=== PATIENT | female | born 1960 | race Caucasian/White ===

== ENCOUNTER 2024-06-28 06:19 | Day surgery (SDC) | payer MEDICARE, OTHER, SELFPAY ==
[2024-06-28] VITALS (26 sets, daily range): BP systolic 79–150; BP diastolic 47–93; PULSE 39–81; RESP 16; TEMP 36.1–36.8; O2SAT 95–100; BMI 22.5
[2024-06-28] MEDS: ACETAMINOPHEN 500 MG TABLET 1000 MG PO (07:00)
[2024-06-28] MEDS: OXYCODONE (CR) 10 MG TAB.ER.12H PO (07:00)
[2024-06-28] MEDS: SODIUM CHLORIDE 0.9 % (FLUSH) 10 ML SYRINGE IVF (07:10)
[2024-06-28] MEDS: LACTATED RINGERS 1000 ML 1,000 ML 100 ML IV (07:10)
--- NOTE | 2024-06-28 07:16 | W.PM.H&PU ---
History & Physical Update History & Physical Update H&P Reviewed and patient assessed: No changes noted
--- NOTE | 2024-06-28 07:18 | CRLHL7_ITS ---
For Patients: As a result of the Cures Act, medical imaging exams and procedure reports are released immediately into your electronic medical record. You may view this report before your referring provider. If you have questions, please contact your health care provider. Indication: Postop Technique: AP hip centered pelvis and lateral view right hip Findings/Impression: Hardware from a right total hip arthroplasty is in satisfactory position. Bone alignment is normal. No sign of acute fracture. Postop changes are within normal limits. Dictated by Mickey Covarrubias MD @ 06/28/2024 1:13:03 PM (Electronically Signed)
--- NOTE | 2024-06-28 07:30 | CRLHL7_ITS ---
For Patients: As a result of the Cures Act, medical imaging exams and procedure reports are released immediately into your electronic medical record. You may view this report before your referring provider. If you have questions, please contact your health care provider. Indication: Hip replacement surgery Technique: AP hip fluoroscopic image. Fluoroscopy time 33.2 seconds. Findings/Impression: Hardware from a right total hip arthroplasty is in satisfactory position. Dictated by Mickey Covarrubias MD @ 06/28/2024 1:13:44 PM (Electronically Signed)
[2024-06-28] MEDS: CEFAZOLIN 2 GM in 0.9 % SODIUM CHLORIDE Mini-bag 100 ML IVPB (07:32)
--- NOTE | 2024-06-28 07:33 | SUR.PREOP ---
TIME?OUT:?0714 PT/RN/MDA?VERIFICATION?OF?SURGICAL?SITE,?PROCEDURE,?AND?CONSENT OBTAINED?PRIOR?TO?INVASIVE?PROCEDURE.
[2024-06-28] MEDS: TRANEXAMIC ACID 100 MG/ML INJ 1000 MG IV (07:35)
--- NOTE | 2024-06-28 08:18 | P.NB_ITS ---
Nerve Block Nerve Block Time Seen by Provider: 07:23 Date Seen: 06/28/24 Type of block requested by surgeon for post-operative analgesia: BOLA/LFCN Side: right Time out performed: Yes Verification of patient name: Yes Verification of date of : Yes Site marking: site marked Name of person performing procedure: Barry Continuous monitoring Was continuous monitoring of O2 sat, B/P, cardiac catheterization technician, recorded every 15 minutes?: Yes Procedure Checklist: sterile prep, needles and gloves Ultrasound guided. Images saved: Yes Medications given in 5ml increments after negative aspiration: Ropivicaine %: 0.5 mL: 30 Needle gauge: 20 Precedex (mcg): 25 Patient tolerated procedure well: Yes Additional comments: Needle noted below psoas tendon needle noted adjacent to LFCN Block Charges Block Charge (with Pro Fee): Other Periph Nerve Block Use of Ultrasound Machine for Block: Yes- US Guidance/pain block
--- NOTE | 2024-06-28 08:18 | W.ANESCHARGE ---
Anesthesia Charges Start Date/Time Anesthesia Start Date: 06/28/24 Anesthesia Start Time: 07:26 Stop Date/Time Anesthesia Stop Date: 06/28/24 Anesthesia Stop Time: 09:38
--- NOTE | 2024-06-28 08:48 | PM.ORPRC ---
Procedure Note Date of procedure: 06/28/24 Procedure: PREOPERATIVE DIAGNOSIS: 1. Right hip osteoarthritis, severe, primary POSTOPERATIVE DIAGNOSIS: 1. Right hip osteoarthritis, severe, primary PROCEDURE: 1. Right total hip arthroplasty-anterior approach 2. 16827 - intraoperative fluoroscopy up to 1 hour. SURGEON: Franco Gonzalez MD. LUBRICATING ENGINEER: Chaz Whitman PA-C; LENKA Urbano - Of note, a skilled guest services assistant was critical for this case to aid in patient positioning, tissue retraction, limb manipulation/positioning, and closure. ANESTHESIA: Spinal anesthetic EBL: 200 mL IMPLANTS: DePuy J&J uncemented total hip [place] cup size 50, hole eliminator, +4 neutral liner Actis stem, high offset, size 6 +1 mm ceramic 32mm head COMPLICATIONS: None evident INDICATIONS: The patient is a pleasant 64-year-old female who has experienced severe right hip pain and difficulty bearing weight. Workup included x-rays which revealed severe osteoarthrosis in the hip. Given the deformity, the dysfunction, and the pain, as well as the failure of nonoperative management, recommendation was made for surgery. FINDINGS: Full-thickness chondral loss diffusely throughout the femoral head as well as acetabulum. Osteophytes around the perimeter of femoral head/neck junction. Moderate effusion upon entering the joint. DESCRIPTION OF PROCEDURE: Following a thorough discussion of risks, benefits, and alternatives consent was obtained and the right hip was marked. The patient was brought to the operating room and placed supine on the operating table. Induction of anesthesia was undertaken. 1 g IV Ancef and 1 g tranexamic acid was administered within 1 hr of incision preoperatively. Proper time-out was performed identifying proper patient, site, procedure. The operative extremity was prepped and draped in the appropriate sterile fashion using ChloraPrep after the patient was positioned on the [place] table with head in neutral alignment and all bony prominences well padded. C-arm fluoroscopic imaging was utilized to confirm proper pelvis rotation and position, and to get true AP films of both the contralateral left, and the affected right hip. This is for comparison. A longitudinal incision was made starting approximately 1 cm distal to the ASIS, and 3-4 cm lateral. The incision was extended distally aiming toward the lateral border the patella. Sharp incision through skin and bovie cautery through the subcutaneous tissue allowed identification of the TFL fascia. This was sharply divided, and the fascia bluntly released from the muscle fibers as we dissected medial. Upon coming to the medial border, we were able to retract the TFL laterally, and penetrated the deeper fascia and identify the crossing circumflex vessels. These were ligated/cauterized. The rectus was elevated from the capsule, and retractors placed laterally and medially along the femoral neck to help with visualization of the capsule. We then performed an inverted T capsulotomy. The capsule was tagged for later repair. Retractors were placed inside the capsule. The femoral neck was visualized after releasing medially down to the lesser trochanter, along the saddle laterally, and up onto the acetabulum. The femoral neck cut was made in line with our preoperative templating. The head was removed in a single piece, and sized. We turned our attention to acetabular preparation. Initially, the labrum was resected from around the perimeter, the pulvinar was excised, allowing us to visualize the false wall. We started the reaming with a 43 mm reamer. This was medialized down to the true wall. We then enlarged our reamers sequentially up to one size less than the selected cup size. We trialed at the same size and found it to have an excellent fit. The selected cup was then opened, inserted, and impacted in line with the goal of 40? of abduction, and 20-25? of anteversion. This was confirmed on C-arm fluoroscopic imaging to be in the appropriate/goal position. Once the cup was placed we placed a hole eliminator and a liner consistent with preop planning. Attention was turned to the femoral preparation. The limb was extended, externally rotated, and adducted. The posteromedial capsule was released, as retractors were placed allowing excellent access to the proximal femur. Initially a weigh box tender was followed by canal finder followed by various broaches. We broached sequentially up to the size noted above, found it to have excellent rotational control, and trialing various heads and necks, revealed that appropriate neck offset, and the above noted head size provided the greatest stability, and presybeterian of length, and offset. C-arm fluoroscopic imaging confirmed position of the stem, as well as leg lengths, which were compared with the pre procedure all fluoroscopic images. Trial implants were removed, the real femoral stem inserted, as was the appropriate head. After reducing, the leg was placed through range of motion and stability was confirmed anterior, posterior, and lateral. A 3 min Betadine soak was then performed, and thorough irrigation with normal saline followed. Closure of the capsule was performed with #1 PDS. Bleeding was confirmed to be controlled at this stage, and the TFL fascia was closed with #0 strata fix. Subcutaneous, and subcuticular closure was performed with 2-0 Vicryl and 4-0 Monocryl, respectively. Dressings were applied, and the patient was awoken from anesthesia and transferred the PACU in stable condition. A skilled guest services assistant was critical for this case to aid in patient positioning, tissue retraction, acetabular and proximal femoral exposure, limb manipulation/positioning, dislocation/relocation, patient safety, and closure. PLAN: 1. Weight bear as tolerated operative extremity. 2. 23 hr perioperative antibiotics. 3. Ice. 4. PT/OT consults for ambulation assistance/mobility education. 5. Social work consult for discharge planning. 6. DVT prophylaxis with at SCDs and Xarelto x5 days followed by aspirin for a total of 1 month..
[2024-06-28] MEDS: METOCLOPRAMIDE HCL 5 MG/ML INJ 10 MG IVP (09:42)
--- NOTE | 2024-06-28 09:45 | W.ANESCHARGE ---
Anesthesia Charges Start Date/Time Anesthesia Start Date: 06/28/24 Anesthesia Start Time: 07:26 Stop Date/Time Anesthesia Stop Date: 06/28/24 Anesthesia Stop Time: 09:38
[2024-06-28] MEDS: ePHEDrine sulfate 5 MG/ML inj IVP (09:51)
--- NOTE | 2024-06-28 10:40 | SUR.PHASEI ---
0950: Anesthesia notified of patients low blood pressures, more ephedrine given by anesthesia and Albumin IV started at 1000 by Charlotte Nguyen CRNA.
[2024-06-28] MEDS: ONDANSETRON 2 MG/ML inj 4 MG IVP (13:18)
[2024-06-28] MEDS: 0.9 % SODIUM CHLORIDE 500 ML 500 ML IV (13:30)
== END 2024-06-28 15:18 | disposition home or self-care (01) ==
PROVIDERS: Visit Provider Orthopaedic Surgery Sports Medicine
PROC: (CPT 27130; principal; 2024-06-28 07:30)
DX: M16.11 Unilateral primary osteoarthritis, right hip (principal); G89.18 Other acute postprocedural pain; E03.9 Hypothyroidism, unspecified
CPT/HCPCS: 27130; 01214; 36415; 64450; 73501; 76942; 86850; 86900; 86901; 97110; 97116; 97161; 97165; 97535; A9270; C1776; J0690; J1100; J2405; J2704; J2765; J2795; J3010; J7030; J7120

== ENCOUNTER 2024-08-18 13:00 | Outpatient (RCR) | payer MEDICARE, OTHER, SELFPAY ==
--- NOTE | 2024-06-13 16:45 | PT.OPEX ---
PT [place] Outpatient Eval PT [facility] Outpatient Eval Start: 06/13/24 09:45 Freq: Status: Active Protocol: Document 06/13/24 09:47 COREY (Rec: 06/13/24 16:44 COREY [id number]) E-signed By Marivel Arreguin PT Physical Therapy Outpatient Evaluation Insurance Information Recert Due Date 09/10/24 Insurance Name Other; See Comments Insurance Information/Comments FOR LIFE Medical Diagnosis RIGHT HIP OA R MERLINE SCHEDULED FOR 06/28/24 Treating Diagnosis RIGHT HIP PAIN RIGHT HIP WEAKNESS ANTALGIC GAIT Imaging Report Information moderate-severe osteoarthrosis in the right hip seen with joint space narrowing especially in the anterolateral region. Moderate osteophyte formation laterally and inferiorly. Referring MD A[place]IN Subjective Preferred Name ANGELIC Subjective PATIENT REPORTS HIP PAIN SINCE 07/2023 THAT EXACERBATED SEP 2023 AND ATTENDED PHYSICAL THERAPY D/T THE SIGNIFICANT PAIN AND DYSFUNCTION. SHE REPORTS SIGNIFICANT PAIN WIHT STAIRS, COMMUNITY AMB AND SQUATTING/STOOPING. AT THIS TIME, SHE IS PLANNING TO ATTEND THERAPY WHERE SHE HAD PREVIOUS HIP PHYSICAL THERAPY AT WITH [facility] IN [place] BUT NOW LIVES IN [place] AND CONTEMPLATING EITHER HERE IN [place] OR [place]. Pain Comments -03/08 Date of Last Physician Visit 05/02/24 Date of Surgery (If applicable) 06/28/24 Current Work Status Retired Precautions Treatment Precautions/Contraindications ANTERIOR APPROACH PRECAUTIONS Therapy Limitations/Systems Review Not Limited Objective Other/Pertinent Objective AROM: HIP IR/ER LIMITED BOTH RIGHT AND LEFT 5/15 (LEFT 15/50) HIP FLEX WNL HIP EXT WFL HIP ABD WNL MMT: WNL HIP AND KNEE ANTALGIC GAIT WITH POINT TENDERNESS GLUT MED/LATERAL HIP AND C SIGN Functional Test Performed & Score t Extensive discussion and education on what to expect post operatively. Time was spent discussing home modifications, Assistive devices, pain control, fall prevention, hospital stay time line, and assist needed for activities post surgically. Pt questions were answered and demonstrated understanding. Assessment Assessment/Impression PATIENT IS A [address] AUSTIN FOR PREOPERATIVE TEACHING FOR AN UPCOMING RIGHT MERLINE SCHEDULED FOR ; PMHX IS UNREMARKABLE; PATIENT DEMONSTRATES LIMITED ROM GREATEST WITH IR/ER, NORMAL STRENGTH, AND PAIN CONSISTENT WITH SEVERE HIP OA ; REVIEWED, DEMONSTRATED AND PATIENT PERFORMED POST OPERATIVE HEP INCLUDING ANKLE PUMPS, QUADS SETS, GLUTE SETS, HEEL SLIDES, SEATED KNEE EXT, STS, STDG HIP ABD, AND HEEL RAISES. DISCUSSION REGARDING THE SURGICAL PROCEDURE ALONG WITH PRECAUTIONS/RESTRICTIONS WELL EDUCATION ON TYPICAL SYMPTOMS, MOBILITY NEEDS, AND CHALLENGES POST OPERATIVELY. SUGGESTED ASSISTIVE DEVICES THAT WOULD BEST SUIT PATIENT FOR SAFE MOBILITY ALONG WITH SYMPTOM MGMT FOR PAIN AND EDEMA BY WAY OF PO MEDS BOTH OTC AND RX, ICE, ELEVATION, AND REST. EDUCATION PROVIDED ON SETTING UP THE HOME FOR THE RETURN HOME WITH INSTRUCTION TO CLEAR PATHWAYS, MAKE DAILY ITEMS EASILY ACCESSIBLE, AND PRACTICE USING HER ASSISTIVE DEVICE TO TRANSFER FROM THE TYPICAL SURFACES (RECLINER/ COUCH, BED, TOILET, CAR). PATIENT PROVED A FOLDER WITH THE AFOREMENTIONED MATERIAL AND ENCOURAGED TO PERFORM THE HEP EXERCISE DAILY TO ALLOW THE MUSCLES TO ESTABLISH MM MEMORY IN ORDER TO ASSIST WITH POST OPERATIVE PERFORMANCE. PATIENT 'S QUESTIONS WERE ANSWERED AND RETURNED UNDERSTANDING OF ALL SKILLED INSTRUCTION THROUGH DEMONSTRATION. ADDITIONALLY, ASSISTED PATIENT WITH SCHEDULED POST OPERATIVE VISIT THE LOCATION THAT BEST MET HER NEEDS. I AM UNCLEAR AT THIS TIME IF SHE WILL RETURN TO [facility] OR ST[facility] IN THE [facility]. Primary Functional Limitations STAIRS COMMUNITY AMB STOOPING SQUATTING Plan of Care Rehabilitation Potential Good Physical Therapy Goals 1. PATIENT WILL BE EDUCATED IN MERLINE PRE/POST OP SAFETY, MOBILITY, AND EXERCISES WITH WRITTEN COPY OF HER HEP PROVIDED AND PATIENT RETURNING FOR POST OPERATIVE THERAPY AFTER MERLINE ON 06/28/24 SHOULD SHE RETURN TO OUR CLINIC. PATIENT GOALS WILL BE UPDATED TO MERLINE REHAB GOALS POST SURGERY. Coordination/Communication With Referral Source Treatment Plan/Direct Interventions Heat,Ice/Cold/Vasopneumatic, Joint Mobilization,Manual Therapy,Neuromuscular Re-ed, Self-Care/Home Management, Therapeutic Activities, Therapeutic Exercises Patient Will Be Discharged From Therapy Completion of LTG(s), Independently Progressing Evaluation Billing Untimed Code Treatment Minutes 15 PT Eval No Charge No Complexity Low Certification Information Initial Certification Date 06/13/24 Ending Certification Date 09/10/24 Provider Signature Required Yes Provider Signature Shows Agreement With POC & Medical Necessity Physician NPI Number Write NPI# Here Physician Comment/Change : Physician Signature & Date Requested Please Sign/Date Here
== END 2024-09-12 14:22 | disposition home or self-care (01) ==
PROVIDERS: PCP Orthopaedic Surgery Sports Medicine; Visit Provider Orthopaedic Surgery Sports Medicine
DX: M16.11 Unilateral primary osteoarthritis, right hip (principal); Z51.89 Encounter for other specified aftercare
CPT/HCPCS: 97110; 97140; 97161; 97164